=== PATIENT | female | born 1985 | race Caucasian/White ===

== ENCOUNTER 2016-11-21 19:15 | Emergency (ER) | payer BC ==
--- NOTE | ~2016-11-21 | ER ---
PATIENT'S NAME: MAURICE RICE [facility] AGE: 31 Y [address] ROOM: [place] [address] LOCATION: [facility] ADMIT DATE: 11/21/2016 ER/Outpatient Report DISCHARGE DATE: 11/21/2016 FAMILY PHYSICIAN: PHYSICIAN, NO ATTENDING PHYSICIAN: Chuck Sotelo Time of Evaluation: 1925 hours. CHIEF COMPLAINT: Chest pressure, short of breath. HISTORY OF PRESENT ILLNESS: The patient is a 31-year-old female, who is quite active. The patient was at work today when she was lifting bags of mulch and suddenly developed what she described as a pressure across her chest. The pressure did radiate up the left side of her neck. She then began to feel somewhat short of breath. Symptoms lasted for several minutes. The patient then at work had another reoccurrence where she felt somewhat nauseated, sweaty, and short of breath. The patient contributed that to possible anxiety attack, which she denies any previous attacks. The patient is a smoker, but has no other significant risk factors. ALLERGIES: NONE. HOME MEDICATIONS: None. MEDICAL HISTORY: Does include some exertional asthma, which she had when she was younger. SURGERIES: Include a previous . Last normal menstrual period, 11/02/2016. SOCIAL HISTORY: She is a smoker but somewhat limited. She has alcohol maybe 3 times a week. FAMILY HISTORY: Not significant for any heart disease. REVIEW OF SYSTEMS: GENERAL: Health good. No recent illness. HEAD/ENT: No complaints of headache, visual changes, or sore throat. RESPIRATORY: She does feel short of breath. She has had no cough. CARDIOVASCULAR: Negative for any heart murmurs. No previous episode of chest PATIENT'S NAME: MAURICE RICE [facility] AGE: 31 Y [address] ROOM: [place] [address] LOCATION: [facility] ADMIT DATE: 11/21/2016 ER/Outpatient Report DISCHARGE DATE: 11/21/2016 FAMILY PHYSICIAN: PHYSICIAN, NO ATTENDING PHYSICIAN: Chuck Sotelo pain. GASTROINTESTINAL: No history of GERD, abdominal pain, diarrhea, or vomiting. GENITOURINARY: No dysuria. MUSCULOSKELETAL: Denies any calf pain or tenderness. OBJECTIVE FINDINGS: VITAL SIGNS: Blood pressure is 115/59, temperature is 97.8, respiratory rate 16, pulse 56, and O2 saturations are 98%. GENERAL APPEARANCE: She appears in good health, oriented x3. HEAD: Normocephalic. EYES: PERRLA. No icterus. NOSE: Septum midline. MOUTH: Teeth in good repair. Buccal membranes moist. NECK: Supple. No adenopathy. LUNGS: Slightly diminished. No rhonchi or rales noted. HEART: Rhythm regular. No murmurs, thrills, or gallops. ABDOMEN: Soft, nontender. EXTREMITIES: No pedal edema. No calf tenderness. LABORATORY DATA AND X-RAYS: EKG reviewed from [facility] did show some T-wave inversion in inferior and anterior leads. Repeat EKG also verified that. Cardiac markers/enzymes were normal x2. CBC: White count 8.0, hemoglobin 12.6. Protime 10.6, PTT 28, INR 1.01. test was negative. D-dimer also within normal limits. Chest x-ray showed normal heart size. There were no active infiltrates. Mediastinal structures appeared normal. ASSESSMENT: 1. Chest pain with exertion. 2. History of exercise-induced asthma. PLAN: I did have Dr. Sotelo review the EKG. He recommended that she be set up for a stress test. I did talk to Dr. Toscano, swatch checker, who agreed the patient to set up with outpatient for Wednesday. Recommendations were limit activities until the stress test is completed, continue 1 adult aspirin daily. The patient remained stable and symptom free at discharge. The patient verbalized understanding of her take-home instructions. STACEY DELVALLE FOR CHUCK SOTELO MD [facility]/kallie PATIENT'S NAME: MAURICE RICE [facility] AGE: 31 Y [address] ROOM: [place], [place] [id number] LOCATION: [facility] ADMIT DATE: 11/21/2016 ER/Outpatient Report DISCHARGE DATE: 11/21/2016 FAMILY PHYSICIAN: PHYSICIAN, NO ATTENDING PHYSICIAN: Chuck Sotelo /[id number] d: 11/22/16 0121 t: 11/24/16 1205, OUTPATIENT REPORT
[2016-11-21 19:44] LABS: BASOPHIL % 0.3 %; EOSINOPHIL # 0.1 K/uL (0.0-0.5); EOSINOPHIL % 1.6 %; HEMATOCRIT 37.7 % (33.0-46.0); HEMOGLOBIN 12.6 g/dL (11.0-15.0); IMMATURE GRANULOCYTE % 0.3 %; LYMPHOCYTE # 2.2 K/uL (0.8-4.0); LYMPHOCYTE % 28.2 %; MCH 28.6 pg (27.0-34.0); MCHC 33.4 gm/dL (32.0-36.5); MCV 85.7 fl (83.0-98.0); MONOCYTE # 0.7 K/uL (0.0-1.0); MONOCYTE % 9.1 %; MPV 9.8 fl (9.4-12.4); NEUTROPHIL # (ANC) 4.8 K/uL (1.8-7.8); NEUTROPHIL % 60.5 %; NRBC % 0 /100WBC (0-0.00); PLATELET COUNT 329 K/uL (150-450); RDW-CV 12.4 % (11.9-14.6)
[2016-11-21 19:54] LABS: INR - (THERAPEUTIC) 1.01 (0.92-1.07); PROTIME 10.6 SECONDS (9.8-11.4); PTT 28 SECONDS (25-32)
[2016-11-21 20:03] LABS: ALBUMIN 3.4 gm/dL (3.5-5.0); ALK PHOS 36 IU/L (33-138); ALT 16 IU/L (12-78); ANION GAP 13.5 (10.0-19.0); AST 12 IU/L (10-40); BLOOD UREA NITROGEN 8 mg/dL (6-24); CALCIUM 8.5 mg/dL (8.5-10.5); CHLORIDE 107 mMol/L (96-110); CO2 25 mMol/L (22-32); CPK 94 IU/L (21-215); CREATININE 0.7 mg/dL (0.5-1.1); ESTIMATED GFR (MDRD EQUATION) > 60; POTASSIUM 3.5 mMol/L (3.7-5.1); SODIUM 142 mMol/L (135-145); TOTAL BILIRUBIN 0.3 mg/dL (0.0-1.5); TOTAL PROTEIN 6.7 g/dL (6.0-8.4)
[2016-11-21 22:13] LABS: CPK 92 IU/L (21-215)
== END 2016-11-21 22:37 | disposition disaster alternative care site (69) ==
LOC: GMED 19:15
PROVIDERS: Emergency Medicine
DX: R07.9 Chest pain, unspecified (principal); J45.909 Unspecified asthma, uncomplicated; F17.200 Nicotine dependence, unspecified, uncomplicated